=== PATIENT | male | born 1955 | race Caucasian/White ===

== ENCOUNTER 2018-08-26 11:58 | Outpatient (CLI) | payer OTHER | END 2018-08-26 11:59 | disposition home or self-care (01) | LOC: LAB 11:58 | PROVIDERS: ATTEND Specialist | DX: E78.5 Hyperlipidemia, unspecified (principal); I10 Essential (primary) hypertension; K21.9 Gastro-esophageal reflux disease without esophagitis; R06.02 Shortness of breath; E16.2 Hypoglycemia, unspecified; R53.83 Other fatigue; E55.9 Vitamin D deficiency, unspecified | CPT/HCPCS: 36415; 80053; 80061; 80074; 81001; 82306; 83036; 84443; 85025; 85610; 85651; 85730; 87389 ==

== ENCOUNTER 2018-08-29 06:36 | Outpatient (CLI) | payer OTHER ==
--- NOTE | 2018-08-29 14:34 | STRESSECHO ---
Date of Test: 08/29/18 Ordering Physician: DR. CHAZ YUN Occupation: RETIRED Reason for Exam: SOB, HTN, SURGICAL CLEARANCE Smoking History: NONE Height: 75 " Weight: 240 LBS Current Medications: BENICAR, CRESTOR, NORVASC, ASA Resting EKG: SINUS RHYTHM/ NO ACUTE CHANGES Target Heart Rate: 131/155 S-T SEGMENT STAGE MPH/GRADE HEART RATE BPM BLOOD PRESSURE MMHG RHYTHM +/- ELEVATION DEPRESSION SYMPTOMS AT REST 85 BPM 142/90 MMHG SR X NONE 1 1.7/10% 107 BPM 142/88 MMHG SR X NONE 2 2.5/12% 130 BPM 150 92 MMHG SR X NONE 3 3.4/14% 4 4.2/16% 5 5.0/18% Immediately After 137 BPM SR X SHORT OF AIR Minutes Post Exercise 4:00 92 BPM 136/88 MMHG SR X NONE Minutes Post Exercise DURATION OF EXERCISE: 6:30 MAXIMUM HEART RATE REACHED: 137 BPM REASON FOR TERMINATION: SHORT OF AIR 99% OXYGEN SATURATION ON ROOM AIR WITH EXERCISE METS 8.3 INTERPRETATION: 1. NO EVIDENCE OF ISCHEMIA BY ST-T WAVE 2. NO CHEST PAIN OR CHEST DISCOMFORT 3. BLOOD PRESSURE RESPONSE: NORMAL AT REST AND WITH EXERCISE 4. NO ARRHYTHMIAS NORMAL LEFT VENTRICULAR CONTRACTILITY--RESTING AND POST EXERCISE MTDD
--- NOTE | 2018-08-31 10:18 | ECHO2D ---
Date of Exam: 08/31/18 Ordering Physician: DR. CHAZ YUN Room #: OP Reason for Echo: SOB, HTN, SURGICAL CLEARANCE M-Mode Normal Adult Results LV Dimensions Normal Adult Results AoV Opening excursions >1.6 >1.6 LVEDD-base- 3.5-5.8 4.5 Ao root dimensions 2.0-3.7 3.1 LVESD-base- 3.1-4.6 L. Atrium dimensions 1.9-3.8 3.8 Post. Wall thickness 0.8-1.1 1.1 IV septum (thickness) 0.7-1.2 1.1 Post. Wall excursion 0.72-1.3 NORMAL Septal motion NORMAL Systolic motion R. Ventricular cavity 1.5-2.0 NORMAL LVEF 60% 50% Paradoxical septal wall motion NORMAL 2-D : 2-D M Mode Echocardiogram was performed using apical four chamber and left parasternal long and short axis views. Mitral, tricuspid and aortic valves appear to be normal. Contractility of the left ventricle seems to be normal, so is the cavity size. Left atrial cavity size and aortic root appear to be normal. There is no pericardial effusion. There is no thrombus noted in the left ventricular or left aortic cavity. No mitral valve prolapse noted. M-MODE: MV: NORMAL AV: NORMAL TV: NORMAL PV: CHAMBER SIZE: NORMAL WALL MOTION: NORMAL PERICARDIUM: NORMAL INTERPRETATION: 1. NORMAL 2 "D" "M" MODE ECHO 2. MAYBE MILDLY STIFF LEFT VENTRICLE MTDD
--- NOTE | 2018-08-31 10:24 | ECHOSTRESS ---
Date of Exam: 08/29/18 Ordering Physician: DR. CHAZ YUN Reason for Echo: SOB, HTN, SURGICAL CLEARANCE, STRESS TEST--NO ISCHEMIA M-Mode Normal Adult Results LV Dimensions Normal Adult Results AoV Opening excursions >1.6 LVEDD-base- 3.5-5.8 Ao root dimensions 2.0-3.7 LVESD-base- 3.1-4.6 L. Atrium dimensions 1.9-3.8 Post. Wall thickness 0.8-1.1 IV septum (thickness) 0.7-1.2 Post. Wall excursion 0.72-1.3 Septal motion Systolic motion R. Ventricular cavity 1.5-2.0 LVEF 60% Paradoxical septal wall motion 2-D: NORMAL LEFT VENTRICULAR CONTRACTILITY AT REST AND POST EXERCISE M-MODE: MV: AV: TV: PV: CHAMBER SIZE: WALL MOTION:NORMAL LEFT VENTRICULAR CONTRACTILITY AT REST AND POST EXERCISE PERICARDIUM: INTERPRETATION: 1. NORMAL LEFT VENTRICULAR CONTRACTILITY AT REST AND POST EXERCISE MTDD
== END 2018-08-29 06:37 | disposition home or self-care (01) ==
LOC: CAR 06:36
PROVIDERS: ATTEND Internal Medicine
DX: R06.02 Shortness of breath (principal); I10 Essential (primary) hypertension; Z01.810 Encounter for preprocedural cardiovascular examination